=== PATIENT | male | born 1945 | race Caucasian/White ===

== ENCOUNTER 2019-03-09 14:25 | Inpatient (IN) ==
[2019-03-09] MEDS ORDERED: IOPAMIDOL 100 ML BOTTLE IV ONE (14:26)
[2019-03-09] MEDS ORDERED: IPRATROPIUM/ALBUTEROL 3 ML AMPUL.NEB NEB ONE ×3 (14:41→17:29)
[2019-03-09] MEDS ORDERED: methylPREDNISolone SOD SUCC 125 MG/2 ML VIAL IV ONE (15:06)
[2019-03-09 16:05] LABS: Basophils # (Auto) 0 K/mcL (0.0-0.3); Basophils % (Auto) 0.3 % (0.0-2.0); Eosinophils # (Auto) 0.2 K/mcL (0.0-0.7); Eosinophils % (Auto) 2.4 % (0.0-7.0); Hemoglobin 14.9 g/dL (13.5-16.5); Lymphocytes # (Auto) 1.2 K/mcL (1.5-4.8); Lymphocytes % (Auto) 16.5 % (15.5-49.0); Mean Cell Volume 91.6 fL (80.0-100.0); Mean Corpuscular HGB Conc 33.1 g/dL (31.0-36.0); Mean Platelet Volume 7.1 fL (7.4-10.4); Monocytes # (Auto) 0.5 K/mcL (0.1-0.9); Monocytes % (Auto) 6.8 % (1.0-12.0); Platelet Count 247 K/mcL (140-440); RBC 4.91 M/mcL (4.50-5.90); Red Cell Distribution Width 14.4 % (11.5-14.5); WBC 7.2 K/mcL (4.5-11.0)
[2019-03-09 16:08] LABS: proBNP 136.8 pg/ml (0-125)
[2019-03-09 16:10] LABS: ALT/SGPT 56 U/l (0-40); AST/SGOT 33 U/l (0-37); Albumin 4.4 gm/dL (3.2-5.2); Albumin/Globulin Ratio 1.7 (1.0-2.3); Alkaline Phosphatase 65 U/L (39-117); Bilirubin,Total 0.5 mg/dL (0.0-1.0); Blood Urea Nitrogen 12 mg/dl (8-23); Calcium 9.6 mg/dl (8.6-10.4); Carbon Dioxide 27 mmol/L (22-30); Chloride 97 mmol/L (96-108); Globulin 2.6 gm/dL (2.2-3.7); Glomerular Filtration Rate 67; Glucose 122 mg/dL (70-105)
--- NOTE | 2019-03-09 16:57 | XRay Report ---
CLINICAL INFORMATION: sob COMPARISON: 01/20/2019 FINDINGS: Heart size, mediastinum and pulmonary vessels are normal. Minor bibasilar scarring and/or atelectasis appreciated.. No infiltrates or effusions. Moderate calcific plaque at both carotid bifurcations noted. Mild chronic wedging of all thoracic vertebral bodies stable IMPRESSION: No acute disease. Moderate atherosclerotic ossific plaque in both carotid bifurcations. Consider carotid Doppler study for stenosis evaluation Interpreted and Authenticated by: Kenny Grewal 03/09/19
[2019-03-09] MEDS ORDERED: AZITHROMYCIN 500 MG in DEXTROSE 5% IN WATER 250 ML IV ONE (17:14)
--- NOTE | 2019-03-09 17:39 | Cat Scan Report ---
CLINICAL INFORMATION: Short of breath COMPARISON: 10/29/[address] TECHNIQUE: 80ml of Isovue-370 were injected intravenously. Using SmartPrep to maximize pulmonary artery opacification, .625mm helical slices were obtained from the lung apices through the lung bases. Following reconstruction, 2.5 mm sagittal, coronal, and axial reformations were processed. The exam was reviewed at mediastinal, lung, and bone windows. The exam was performed using radiation dose optimization techniques including, but not limited to, automated exposure control, adjustment of the mA and/or kV according to patient size and use of iterative reconstruction technique. FINDINGS: The pulmonary arteries are well opacified and normal in diameter - no evidence of embolus. Thoracic aorta is normal in diameter with moderate fibrofatty calcific plaque particularly in the descending segment. There is no adenopathy in the mediastinal hilar or axillary regions. The heart is normal in size with extremely heavy calcific and fibrofatty plaque throughout the coronary arteries. Esophagus is grossly normal. No thyroid is unremarkable Pulmonary parenchymal windows show chronic bronchitis featuring elevated lung volumes and wall thickening of the bronchi with scattered scarring in both mid and lower lungs. There are no nodules or infiltrates. Pleural spaces are normal. Bone windows show mild chronic wedging of multiple mid and lower thoracic vertebral body with endplate irregularity compatible chronic Scheuermann's disease. Images should the superior abdomen show no abnormality IMPRESSION: 1. No evidence of pulmonary embolus 2. Moderate chronic bronchitis. 3. Extremely heavy calcific plaque about the coronary arteries. Occlusive and subocclusive coronary artery disease is suspected. Consider cardiology referral for stress testing Interpreted and Authenticated by: Kenny Grewal 03/09/19
--- NOTE | 2019-03-09 17:45 | Emergency Department Note ---
SOB HPI - General Chief Complaint: Shortness of Breath/Dyspnea Stated Complaint: Short of Breath Time Seen by Provider: 03/09/19 14:53 Source: patient, family Mode of arrival: wheelchair Limitations: no limitations - History of Present Illness 73-year-old male presents with shortness of breath. Onset upon waking up this morning. Has known COPD but states is much worse than usual. He usually can walk around fine but he is completely activity intolerant due to severe shortness of breath. Arrives with tachypnea, tachycardia, and speaks 2-3 words at a time. He denies fever or chills. No nausea, vomiting, or diarrhea or diarrhea. No sore throat or ear pain. No other cold symptoms. States he does have pedal edema but this is chronic and not worse than usual. - Related Data Previous Rx's Medication Instructions Recorded albuterol sulfate 90 mcg/actuation 1 puff INHALATION Q6H PRN #8.5 g 10/02/18 aerosol inhaler hydrocodone 5 mg-acetaminophen 325 1 tab PO QHS PRN #20 tab 10/02/18 mg tablet fluticasone fur. 100 mcg-umeclid 1 inh INHALATION QDAY #60 each 12/29/18 62.5 mcg-vilant 25 mcg inhalat.powder ipratropium-albuterol 0.5 mg-3 3 ml INHALATION Q6HP PRN #30 01/05/19 mg(2.5 mg base)/3 mL nebulization ampul.neb soln amlodipine 5 mg-benazepril 40 mg 1 cap PO QDAY #90 cap 02/02/19 capsule clopidogrel 75 mg tablet 75 mg PO QDAY #90 tab 02/02/19 hydrochlorothiazide 50 mg tablet 25 mg PO QDAY #90 tab 02/02/19 simvastatin 40 mg tablet 40 mg PO QHS #90 tab 02/02/19 Allergies Allergy/AdvReac Type Severity Reaction Status Date / Time No Known Drug Allergies Allergy Verified 02/04/19 16:20 Review of Systems All systems ED: reviewed and negative except as stated. Past Medical History - Past Medical History [facility] Narrative: Medical History (Last Reviewed 03/05/19 @ 17:12 by Hardik Harrison MD) Carotid atherosclerosis (Chronic) History of heavy alcohol consumption (Chronic) Right bundle branch block (RBBB) (Chronic) Obesity (BMI 30-39.9) (Chronic) Acute exacerbation of chronic obstructive airways disease (Acute) Dyspnea (Chronic) Benign essential hypertension (Chronic) Hypertriglyceridemia (Chronic) Elevated PSA (Chronic) Osteoarthritis (Chronic) Aortic aneurysm (Resolved) COPD (chronic obstructive pulmonary disease) (Chronic) High cholesterol (Chronic) Joint pain (Resolved) Past Surgical History (Last Reviewed 03/05/19 @ 17:12 by Hardik Harrison MD) History of aortic aneurysm repair (Chronic) History of colonoscopy (Chronic) Medical history: Reports: COPD, hyperlipidemia, hypertension, ALTAF ( Is on CPAP), pneumonia (History as a child and then also had an episode of aspiration apparently associated with scopolamine patch.), other (Carotid atherosclerosis.). Denies: CVA, DM, myocardial infarction, TIA Surgical history ED: Reports: non-contributory - Social History smoking status: Former smoker Alcohol use: Reports: Daily (2-3 drinks per night) Drug use: Reports: none. Denies: marijuana Physical Exam Limitations: no limitations General appearance: alert, obese, other (Obvious shortness of breath, speaks 2-3 words at a time, tachypneic in the high 20s and tachycardic on arrival.) Head: atraumatic, normocephalic, normal inspection Eye: Present: normal appearance. Absent: conjunctival injection ENT: Present: normal exam, normal oropharynx, mucous membranes moist, normal external ear exam, nasal congestion Neck: Present: normal inspection, trachea midline. Absent: tenderness, lymphadenopathy Chest: Present: symmetric chest wall rise Respiratory: Present: respiratory distress (Mild to moderate on arrival), wheezes (Expiratory wheezes in the bases bilaterally and diminished throughout), accessory muscle use (Mild). Absent: rales/crackles, stridor Cardiovascular: Present: tachycardia, normal heart sounds Extremities: Present: normal inspection, pedal edema (1+ bilaterally) Neurological: Present: alert, oriented X3 Psychiatric: Present: normal affect, normal mood Skin: Present: warm, dry, intact, normal color Course Course Narrative: Patient consistently 91% on room air however he does drop with any exertion. We did try to get him up and walk him just a little bit and he is unable to walk more than about 10 feet without becoming severely tachypneic and sats dropping to low 80s. He does do much better when on oxygen, in bed and resting. @ 1900 I did speak with hospitalist Dr. Bland who agrees to accept this patient. Vital Signs Temperature 98.4 F 03/09/19 14:27 Pulse Rate 120 H 03/09/19 14:27 Respiratory Rate 26 H 03/09/19 14:27 Blood Pressure 147/90 03/09/19 14:27 Pulse Oximetry (%) 92 03/09/19 14:27 Temperature 98.4 F 03/09/19 14:27 Pulse Rate 110 H 03/09/19 18:44 Respiratory Rate 23 H 03/09/19 18:44 Blood Pressure 151/87 03/09/19 18:31 Pulse Oximetry (%) 96 03/09/19 18:44 Shortness of Breath/Dyspnea - Lab Data Lab results reviewed: Yes I reviewed the patient's lab results. Result diagrams: 03/09/19 15:05 03/09/19 15:05 Lab Results 03/09/19 03/09/19 03/09/19 Range/Units 15:05 15:05 15:05 WBC 7.2 (4.5-11.0) K/mcL RBC 4.91 (4.50-5.90) M/mcL Hgb 14.9 (13.5-16.5) g/dL Hct 45.0 (41.0-55.0) % MCV 91.6 (80.0-100.0) fL MCH 30.3 (26.0-34.0) pg MCHC 33.1 (31.0-36.0) g/dL RDW 14.4 (11.5-14.5) % Plt Count 247 (140-440) K/mcL MPV 7.1 L (7.4-10.4) fL Gran % 74.0 (38.0-78.0) % Lymph % (Auto) 16.5 (15.5-49.0) % [place] % (Auto) 6.8 (1.0-12.0) % Eos % (Auto) 2.4 (0.0-7.0) % Baso % (Auto) 0.3 (0.0-2.0) % Gran # 5.3 (1.8-8.0) K/mcL Lymph # (Auto) 1.2 L (1.5-4.8) K/mcL [place] # (Auto) 0.5 (0.1-0.9) K/mcL Eos # (Auto) 0.2 (0.0-0.7) K/mcL Baso # (Auto) 0 (0.0-0.3) K/mcL VBG Lactic Acid 2.3 H (0.5-2.0) mmol/L Sodium 137 (133-145) mmol/L Potassium 4.4 (3.3-5.1) mmol/L Chloride 97 (96-108) mmol/L Carbon Dioxide 27 (22-30) mmol/L Anion Gap 13.0 (8-16) BUN 12 (8-23) mg/dl Creatinine 1.1 (0.7-1.2) mg/dl GFR Calculation 67 Glucose 122 H (70-105) mg/dL Calcium 9.6 (8.6-10.4) mg/dl Total Bilirubin 0.5 (0.0-1.0) mg/dL AST 33 (0-37) U/l ALT 56 H (0-40) U/l Alkaline Phosphatase 65 (39-117) U/L Troponin T (0-0.03) ng/ml NT-Pro-B Natriuret Pep 136.8 H (0-125) pg/ml Total Protein 7.0 (5.9-8.4) gm/dL Albumin 4.4 (3.2-5.2) gm/dL Globulin 2.6 (2.2-3.7) gm/dL Albumin/Globulin Ratio 1.7 (1.0-2.3) 03/09/19 Range/Units 15:05 WBC (4.5-11.0) K/mcL RBC (4.50-5.90) M/mcL Hgb (13.5-16.5) g/dL Hct (41.0-55.0) % MCV (80.0-100.0) fL MCH (26.0-34.0) pg MCHC (31.0-36.0) g/dL RDW (11.5-14.5) % Plt Count (140-440) K/mcL MPV (7.4-10.4) fL Gran % (38.0-78.0) % Lymph % (Auto) (15.5-49.0) % [place] % (Auto) (1.0-12.0) % Eos % (Auto) (0.0-7.0) % Baso % (Auto) (0.0-2.0) % Gran # (1.8-8.0) K/mcL Lymph # (Auto) (1.5-4.8) K/mcL [place] # (Auto) (0.1-0.9) K/mcL Eos # (Auto) (0.0-0.7) K/mcL Baso # (Auto) (0.0-0.3) K/mcL VBG Lactic Acid (0.5-2.0) mmol/L Sodium (133-145) mmol/L Potassium (3.3-5.1) mmol/L Chloride (96-108) mmol/L Carbon Dioxide (22-30) mmol/L Anion Gap (8-16) BUN (8-23) mg/dl Creatinine (0.7-1.2) mg/dl GFR Calculation Glucose (70-105) mg/dL Calcium (8.6-10.4) mg/dl Total Bilirubin (0.0-1.0) mg/dL AST (0-37) U/l ALT (0-40) U/l Alkaline Phosphatase (39-117) U/L Troponin T < 0.01 (0-0.03) ng/ml NT-Pro-B Natriuret Pep (0-125) pg/ml Total Protein (5.9-8.4) gm/dL Albumin (3.2-5.2) gm/dL Globulin (2.2-3.7) gm/dL Albumin/Globulin Ratio (1.0-2.3) - Radiology Data Radiology results reviewed: Yes I reviewed the patient's radiology results. Disposition Pt seen by EDUCATION SALES CONSULTANT/PA only: Yes Clinical Impression: COPD exacerbation, Hypoxia Disposition: Xfer As Inpt ([facility]) Condition: Fair Referrals: Krystina Jamison DO [Primary Care Provider] - Time of Disposition: 19:01
[2019-03-09] MEDS ORDERED: 0.9 % SODIUM CHLORIDE 500 ML IV ONE (18:04)
[2019-03-09] MEDS ORDERED: LORazepam 2 MG/ML VIAL IV ONE (19:30)
--- NOTE | 2019-03-09 19:45 | Internal Med History&Physical ---
Medical - H&P: [facility] Patient information: Note initiated : 03/09/19 at 7:43 pm Service Date, if different from initiated Date: [] Patient: Gil Chávez 73 y/o M admitted on for Short of Breath. Chief Complaint: [] History of present illness: This is a 73-year-old gentleman with a history of COPD, aortic aneurysm status post repair x2, essential hypertension, carotid atherosclerosis, hyperlipidemia, history of heavy alcoholism, hypertriglyceridemia and morbid obesity, right bundle branch block was brought to the ER because of progressively worsening shortness of breath which did not improve with breathing treatments. Patient denied any fever chills or any upper airway symptoms. He is having progressive exertional shortness of breath. He denied any chest pain no palpitations no weight gain but he reported 1+ edema bilaterally. Review of system unremarkable other than cough shortness of breath and wheezing. He was evaluated in the ER underwent CTA which was unremarkable for any pneumonia or PE no features of heart failure on the CTA. Patient was started on duo nebs and Solu-Medrol without any improvement he remained hypoxic and was admitted to our facility for further management - Constitutional Constitutional: Present: chills, fatigue, malaise - EENT Ears: Absent: decreased hearing, ear discharge, ear pain Nose, mouth and throat: Absent: headache(s) - Cardiovascular Cardiovascular: Present: dyspnea, dyspnea on exertion, edema. Absent: irregular heart rhythm, radiating jaw, neck or arm pain - Respiratory Respiratory: Present: cough, dyspnea, dyspnea on exertion, wheezing, pain on inspirtation, chest congestion - Gastrointestinal Gastrointestinal: Absent: change in stool character, coffee ground emesis, constipation, cramping, diarrhea - Neurological Neurological: Present: dizziness. Absent: abnormal gait, abnormal hearing, abnormal movements, confusion, convulsions - Psychiatric Psychiatric: Absent: hallucinations, panic attacks, paranoia, visual hallucinations Medical - H&P: [facility] Medical history: Medical History (Last Reviewed 03/05/19 @ 17:12 by Hardik Harrison MD) Carotid atherosclerosis (Chronic) History of heavy alcohol consumption (Chronic) Right bundle branch block (RBBB) (Chronic) Obesity (BMI 30-39.9) (Chronic) Acute exacerbation of chronic obstructive airways disease (Acute) Dyspnea (Chronic) Benign essential hypertension (Chronic) Hypertriglyceridemia (Chronic) Elevated PSA (Chronic) Osteoarthritis (Chronic) Aortic aneurysm (Resolved) COPD (chronic obstructive pulmonary disease) (Chronic) High cholesterol (Chronic) Joint pain (Resolved) Surgical history: Past Surgical History (Last Reviewed 03/05/19 @ 17:12 by Hardik Harrison MD) History of aortic aneurysm repair (Chronic) History of colonoscopy (Chronic) Pertinent family history: Family History (Last Reviewed 03/05/19 @ 17:12 by Hardik Harrison MD) Grandmother Arthritis Stroke Mother Breast cancer Social history: Social History (Last Updated 03/05/19 @ 17:24 by Hardik Harrison MD) No Social History Section defined Heavy alcoholism Smoking No recreational drug use Medical - H&P: Meds Home Medications Medication Instructions Recorded Confirmed Type albuterol sulfate 90 mcg/actuation 1 puff INHALATION Q6H PRN #8.5 g 10/02/18 03/05/19 Rx aerosol inhaler hydrocodone 5 mg-acetaminophen 325 1 tab PO QHS PRN #20 tab 10/02/18 03/05/19 Rx mg tablet fluticasone fur. 100 mcg-umeclid 1 inh INHALATION QDAY #60 each 12/29/18 03/05/19 Rx 62.5 mcg-vilant 25 mcg inhalat.powder ipratropium-albuterol 0.5 mg-3 3 ml INHALATION Q6HP PRN #30 01/05/19 03/05/19 Rx mg(2.5 mg base)/3 mL nebulization ampul.neb soln amlodipine 5 mg-benazepril 40 mg 1 cap PO QDAY #90 cap 02/02/19 03/05/19 Rx capsule clopidogrel 75 mg tablet 75 mg PO QDAY #90 tab 02/02/19 03/09/19 Rx hydrochlorothiazide 50 mg tablet 25 mg PO QDAY #90 tab 02/02/19 03/09/19 Rx simvastatin 40 mg tablet 40 mg PO QHS #90 tab 02/02/19 03/09/19 Rx Allergies Allergy/AdvReac Type Severity Reaction Status Date / Time No Known Drug Allergies Allergy Verified 02/04/19 16:20 Medical - H&P: Exam - Constitutional Vitals: Temp Pulse Resp BP Pulse Ox 98.4 F 115 H 23 H 134/74 94 03/09/19 14:27 03/09/19 19:16 03/09/19 19:16 12/16/19 19:16 03/09/19 19:16 General appearance: morbidly obese - Head Head exam: Present: atraumatic, normal inspection, normocephalic - Expanded Head Exam Head exam: Absent: abrasion, Vizcarra's sign, contusion - Eye Eye exam: Present: conjunctival injection, EOMI, normal appearance Pupils: Present: PERRL - ENT ENT exam: Present: mucous membranes moist, normal exam, normal oropharynx - Expanded ENT Exam Ear exam: Absent: auricular hematoma, auricular trauma, external canal tenderness Nose & sinuses exam: Present: external nose, grossly normal, sinuses non tender to palpatation Mouth exam: Present: dry mucosa, muffled voice, normal external inspection - Neck Neck exam: Present: full ROM, normal inspection. Absent: lymphadenopathy, meningismus - Respiratory Respiratory exam: Present: accessory muscle use, decreased breath sounds, prolonged expiratory phase, respiratory distress, wheezes - Cardiovascular Cardiovascular exam: Absent: bradycardia, diastolic murmur, +S3, systolic murmur - GI/Abdominal GI/Abdominal exam: Present: normal bowel sounds, soft, distended. Absent: diminished bowel sounds - Expanded GI/Abdominal Exam GI/Abdominal exam: Absent: ascites, Bernstein's sign - Neurological Exam Neurological exam: Present: alert, CN II-XII intact, oriented X3, reflexes normal. Absent: abnormal gait, motor sensory deficit - Expanded Neurological Exam Neurological exam expanded: Absent: ataxia, expressive aphasia, inattentive, memory loss-recent event, memory loss-remote event Patient oriented to: Present: person, place, time - Psychiatric Psychiatric exam: Present: anxious. Absent: agitated, depressed, homicidal ideation Medical - H&P: Reslt - Labs CBC & Chem 7: 03/09/19 15:05 03/09/19 15:05 Labs: Short CBC 03/09/19 Range/Units 15:05 WBC 7.2 (4.5-11.0) K/mcL Hgb 14.9 (13.5-16.5) g/dL Hct 45.0 (41.0-55.0) % Plt Count 247 (140-440) K/mcL BMP 03/09/19 15:05 Sodium 137 Potassium 4.4 Chloride 97 Carbon Dioxide 27 BUN 12 Creatinine 1.1 Glucose 122 H Calcium 9.6 Cardiac Enzymes 03/09/19 Range/Units 15:05 Troponin T < 0.01 (0-0.03) ng/ml Liver Function 03/09/19 Range/Units 15:05 Total Bilirubin 0.5 (0.0-1.0) mg/dL AST 33 (0-37) U/l ALT 56 H (0-40) U/l Alkaline Phosphatase 65 (39-117) U/L Albumin 4.4 (3.2-5.2) gm/dL Medical - H&P: A/P - Narrative A/P Narrative: Acute hypoxic hypercapnic respiratory failure Probable COPD exacerbation We will obtain an ABG Chest x-ray and CTA did not show any evidence of pneumonia We will order an echocardiogram He probably has right-sided heart failure and probable underlying obesity hypoventilation contributing to the picture We will obtain echocardiogram Trend the troponin Telemetry monitoring COPD exacerbation treatment with DuoNebs every 4 hours and as needed Solu-Medrol 40 mg every 8 hourly We will start him on ceftriaxone and azithromycin Patient denied any smoking for the last 2 months but the family is not sure which could be the reason for his recurrent COPD exacerbations Probable obesity hypoventilation and pulmonary hypertension With his body habitus and features of right-sided heart failure possibility of pulmonary hypertension Ordered echocardiogram Exertional shortness of breath Obtain troponin every 6x[address] scan suggestive of significant calcification Need outpatient cardiology follow-up if his initial work-up remain negative Lactic acidosis-probably type B No hypotension in the ER We will monitor lactic acid and vital signs Aortic aneurysm status post repair Monitor blood pressure Systolic blood pressure should be kept less than 160 Heavy alcoholism Potential withdrawal Will monitor and use lorazepam as needed Explained to the patient possibility of respiratory failure if he start withdrawal Probable underlying sleep apnea Patient denies any history of sleep apnea Need outpatient sleep study DVT prophylaxis-subcu heparin CODE STATUS-full code Expected length of stay-2 midnights
[2019-03-09] MEDS ORDERED: ONDANSETRON 4 MG/2 ML VIAL IV PRN (20:02)
[2019-03-09] MEDS ORDERED: ACETAMINOPHEN 325 MG TABLET PO PRN (20:02)
[2019-03-09] MEDS ORDERED: traZODone HCL 50 MG TABLET PO PRN (20:02)
[2019-03-09] MEDS ORDERED: HYDROcodone/APAP 5/325MG TABLET PO PRN (20:02)
[2019-03-09] MEDS ORDERED: ALBUTEROL SULFATE 2.5 MG/3 ML NEBULIZER NEB PRN (20:02)
[2019-03-09] MEDS ORDERED: cefTRIAXone 2 GM in DEXTROSE 5% IN WATER 50 ML IV ONE (21:11)
[2019-03-09] MEDS ORDERED: cefTRIAXone 2 GM VIAL ONE (21:38)
[2019-03-09 21:57] LABS: ALT/SGPT 52 U/l (0-40); AST/SGOT 29 U/l (0-37); Albumin 4.1 gm/dL (3.2-5.2); Albumin/Globulin Ratio 1.7 (1.0-2.3); Alkaline Phosphatase 57 U/L (39-117); Bilirubin,Total 0.4 mg/dL (0.0-1.0); Blood Urea Nitrogen 12 mg/dl (8-23); Calcium 8.7 mg/dl (8.6-10.4); Carbon Dioxide 22 mmol/L (22-30); Chloride 98 mmol/L (96-108); Globulin 2.4 gm/dL (2.2-3.7); Glomerular Filtration Rate 67; Glucose 150 mg/dL (70-105)
[2019-03-09] MEDS: IPRATROPIUM/ALBUTEROL 3 ML AMPUL.NEB NEB SCH (21:58)
[2019-03-09] MEDS: SENNOSIDES 1 TABLET PO SCH (22:55)
[2019-03-09] MEDS: HEPARIN 5,000 UNIT/ML VIAL SQ SCH (22:55)
[2019-03-09] MEDS: DOCUSATE SODIUM 100 MG CAPSULE PO SCH (22:55)
[2019-03-09] MEDS: 0.9 % SODIUM CHLORIDE 10 ML SYRINGE IV SCH (22:56)
[2019-03-10] MEDS: methylPREDNISolone SOD SUCC 40 MG/ML VIAL IV SCH ×4 (00:21→17:11)
[2019-03-10] MEDS ORDERED: METOPROLOL TARTRATE 25 MG TABLET ONE (01:37)
[2019-03-10] MEDS: METOPROLOL TARTRATE 25 MG TABLET PO SCH ×3 (01:39→21:57)
[2019-03-10] MEDS: IPRATROPIUM/ALBUTEROL 3 ML AMPUL.NEB NEB SCH ×6 (03:17→22:42)
[2019-03-10] MEDS: 0.9 % SODIUM CHLORIDE 10 ML SYRINGE IV SCH ×3 (05:43→23:08)
[2019-03-10 06:22] LABS: Hematocrit 42.3 % (41.0-55.0); Hemoglobin 13.9 g/dL (13.5-16.5); Mean Cell Volume 92.5 fL (80.0-100.0); Mean Corpuscular HGB Conc 32.9 g/dL (31.0-36.0); Mean Platelet Volume 7.2 fL (7.4-10.4); Platelet Count 221 K/mcL (140-440); RBC 4.58 M/mcL (4.50-5.90); Red Cell Distribution Width 14.5 % (11.5-14.5); WBC 8.1 K/mcL (4.5-11.0)
[2019-03-10 07:00] LABS: ALT/SGPT 47 U/l (0-40); AST/SGOT 25 U/l (0-37); Albumin 3.9 gm/dL (3.2-5.2); Albumin/Globulin Ratio 1.6 (1.0-2.3); Alkaline Phosphatase 52 U/L (39-117); Bilirubin,Total 0.3 mg/dL (0.0-1.0); Blood Urea Nitrogen 15 mg/dl (8-23); Calcium 8.8 mg/dl (8.6-10.4); Carbon Dioxide 23 mmol/L (22-30); Globulin 2.5 gm/dL (2.2-3.7); Glomerular Filtration Rate 75; Glucose 183 mg/dL (70-105)
[2019-03-10 07:06] LABS: Chloride 95 mmol/L (96-108)
--- NOTE | 2019-03-10 07:28 | Internal Med Progress Note ---
Medical - PN: Subj Patient information: Note initiated : 03/10/19 at 7:27 am Service Date, if different from initiated Date: [] Patient: Gil Chávez 73 y/o M admitted on 03/09/19 for Short of Breath. Chief Complaint: [] Interval history: 03/10-this gentleman was admitted shortness of breath and probable COPD exacerbation. He had an echocardiogram recently which showed an ejection fraction of 65% no major wall motion abnormalities no evidence of any congestive heart failure or LV dysfunction. He was started on COPD exacerbation protocol with a DuoNeb Solu-Medrol and antibiotics. He started feeling slightly better continued having cough unable to spit out the sputum. Pertinent ROS: Review of systems General-having intermittent respiratory distress Cardiac-no chest pain no palpitations Respiratory-continued having cough and shortness of breath with minimal activities Abdomen-no pain distended no nausea no vomiting Urinary-no dysuria no discharge Neuro-no dizziness no focal neuro deficit no seizures - Constitutional Vitals: Vital Signs Temp Pulse Resp BP Pulse Ox 98.4 F 92 H 16 183/93 95 03/10/19 03:17 03/10/19 07:03 03/10/19 07:03 03/10/19 03:17 03/10/19 06:59 Period Temp Pulse Resp BP Sys/Ndiaye Pulse Ox Last 24 Hr 98.1 F-98.7 F 92-127 16-38 133-183/72-105 88-98 Intake and Output 03/09/19 03/10/19 03/10/19 21:59 05:59 13:59 Intake Total 750 790 Output Total 650 Balance 750 140 Weight 234 lb 8 oz Intake & Output: Intake & Output 03/09/19 03/10/19 03/10/19 21:59 05:59 13:59 Intake Total 750 790 Output Total 650 Balance 750 140 Weight 234 lb 8 oz Intake: IV 750 50 Sodium Chloride 0.9% 500 ml @ 500 Wide Open IV BOLUS ONE Rx#: [id number] Zithromax 500 mg In Dextrose 5% 250 in Water 250 ml @ 250 mls/hr IV ONCE ONE Rx#:[id number] Rocephin 2 gm In Dextrose 5% in 50 Water 50 ml @ 100 mls/hr IV ONCE ONE Rx#:[id number] Oral 740 Output: Void Amount 650 Other: Meal Dinner Percent of Meal Consumed 75% Feeding Ability Assist with Tray Set Up Urine Appearance Clear Urine Color Dark Yellow Urine Odor Normal General appearance: cooperative, morbidly obese - Head Head exam: Present: atraumatic, normal inspection, normocephalic - Eye Eye exam: Present: conjunctival injection, PERRL. Absent: nystagmus - ENT ENT exam: Present: mucous membranes dry, normal exam - Neck Neck exam: Present: normal inspection. Absent: lymphadenopathy, meningismus - Respiratory Respiratory exam: Present: accessory muscle use, decreased breath sounds, prolonged expiratory phase, respiratory distress, wheezes - Cardiovascular Cardiovascular exam: Present: normal rate and rhythm. Absent: bradycardia, diastolic murmur, systolic murmur - GI/Abdominal GI/Abdominal exam: Present: normal bowel sounds, soft, distended. Absent: dimin ished bowel sounds - Neurological Exam Neurological exam: Present: alert, oriented X3, reflexes normal. Absent: motor sensory deficit Medical - PN: Obj Da - Labs CBC & Chem 7: 03/10/19 05:30 03/10/19 05:30 Labs: Abnormal Lab Results 03/10/19 03/10/19 03/09/19 05:30 05:30 20:42 MPV 7.2 L Lymph # (Auto) VBG Lactic Acid 2.4 H Chloride 95 L Glucose 183 H ALT 47 H NT-Pro-B Natriuret Pep 03/09/19 03/09/19 03/09/19 20:42 15:05 15:05 MPV Lymph # (Auto) VBG Lactic Acid 2.3 H Chloride Glucose 150 H 122 H ALT 52 H 56 H NT-Pro-B Natriuret Pep 136.8 H 03/09/19 15:05 MPV 7.1 L Lymph # (Auto) 1.2 L VBG Lactic Acid Chloride Glucose ALT NT-Pro-B Natriuret Pep Meds: Medications Acetaminophen (Tylenol) 650 mg PO Q6HP PRN; Protocol PRN Reason: Per Pain Protocol/Fever > 101 Hydrocodone Bitart/Acetaminophen ([place] 5/325mg) 1 tab PO Q8HP PRN; Protocol PRN Reason: Per Pain Protocol Albuterol Sulfate (Ventolin) 2.5 mg NEB Q2HP PRN PRN Reason: Shortness Of Breath Last Admin: 03/09/19 23:25 Dose: 2.5 mg Documented by: Albuterol/Ipratropium (Duoneb) 3 ml NEB Q4HRT [facility] Last Admin: 03/10/19 06:58 Dose: 3 ml Documented by: Docusate Sodium (Colace) 100 mg PO BID [facility] Last Admin: 03/09/19 22:55 Dose: 100 mg Documented by: Heparin Sodium (Porcine) (Heparin) 5,000 unit SQ Q12 [facility] Last Admin: 03/09/19 22:55 Dose: 5,000 unit Documented by: Ceftriaxone Sodium 2 gm/ (Dextrose) 50 mls @ 100 mls/hr IV Q24H [facility] Azithromycin 500 mg/ Dextrose 250 mls @ 250 mls/hr IV Q24H [facility]; Protocol Stop: 03/12/19 10:59 Methylprednisolone Sodium Succinate (Solu-Medrol) 40 mg IV Q6 [facility] Last Admin: 03/10/19 05:43 Dose: 40 mg Documented by: Metoprolol Tartrate (Lopressor) 25 mg PO BID [facility] Last Admin: 03/10/19 01:39 Dose: Not Given Documented by: Ondansetron HCl (Zofran) 4 mg IV Q6HP PRN PRN Reason: Nausea And Vomiting Last Admin: 03/10/19 01:14 Dose: 4 mg Documented by: Pneumococcal Polyvalent Vaccine (Pneumovax 23) 0.5 ml IM .ONCE ONE Stop: 03/11/19 10:01 Senna (Senokot) 2 tab PO HS [facility] Last Admin: 03/09/19 22:55 Dose: 2 tab Documented by: Sodium Chloride (Saline Flush) 10 ml IV Q8 [facility] Last Admin: 03/10/19 05:43 Dose: 10 ml Documented by: Trazodone HCl (Desyrel) 25 mg PO HSP PRN PRN Reason: Insomnia Medical - PN: A/P - Time Spent With Patient Total time spent is greater than 50% in coordination of care (as documented) at patient's floor/unit and/or counseling patient: - Narrative A/P Narrative: Acute hypoxic hypercapnic respiratory failure Probable COPD exacerbation Chest x-ray and CTA did not show any evidence of pneumonia Echocardiogram 3 months ago showed normal ejection fraction no evidence of congestive heart failure Troponin remained negative Telemetry monitoring-unremarkable COPD exacerbation treatment with DuoNebs every 4 hours and as needed Solu-Medrol 40 mg every 8 hourly on ceftriaxone and azithromycin Patient denied any smoking for the last 2 months but the family is not sure which could be the reason for his recurrent COPD exacerbations Probable obesity hypoventilation and pulmonary hypertension With his body habitus and features of right-sided heart failure possibility of pulmonary hypertension Encouraged the patient to be evaluated for sleep apnea Lactic acidosis-probably type B No hypotension in the ER Lactic acid improved Aortic aneurysm status post repair Monitor blood pressure Systolic blood pressure should be kept less than 160 Heavy alcoholism Potential withdrawal Will monitor and use lorazepam as needed Explained to the patient possibility of respiratory failure if he start withdrawal Probable underlying sleep apnea Patient denies any history of sleep apnea Need outpatient sleep study DVT prophylaxis-subcu heparin CODE STATUS-full code Expected length of stay-1-2 midnights Medical - PN: Qual - Stroke Symptom Onset Unknown: No - VTE Deep Vein Thrombosis/Pulmonary Embolism Present on Admission: No
[2019-03-10 08:00] LABS: Band Neutrophils % 5 % (0-10); Lymphocytes % 3 % (15-49); Monocytes % (Manual) 3 % (1-12); Platelet Estimate NORMAL (NORMAL); RBC Morphology NORMAL (NORMAL); Reactive Lymphocytes 1 % (0-2); Segmented Neutrophils % 88 % (38-78)
[2019-03-10] MEDS: DOCUSATE SODIUM 100 MG CAPSULE PO SCH ×2 (08:48→21:58)
[2019-03-10] MEDS: HEPARIN 5,000 UNIT/ML VIAL SQ SCH ×2 (08:48→21:58)
[2019-03-10] MEDS: AZITHROMYCIN 500 MG in DEXTROSE 5% IN WATER 250 ML IV SCH (09:51)
[2019-03-10] MEDS: cefTRIAXone 2 GM in DEXTROSE 5% IN WATER 50 ML IV SCH (15:02)
[2019-03-10] MEDS ORDERED: ATORVASTATIN 20 MG TABLET PO SCH (21:00)
[2019-03-10] MEDS: FAMOTIDINE 20 MG TABLET PO SCH (21:57)
[2019-03-10] MEDS: SENNOSIDES 1 TABLET PO SCH (21:57)
[2019-03-11] MEDS: methylPREDNISolone SOD SUCC 40 MG/ML VIAL IV SCH ×3 (00:09→13:25)
[2019-03-11] MEDS: IPRATROPIUM/ALBUTEROL 3 ML AMPUL.NEB NEB SCH ×3 (02:55→11:14)
[2019-03-11] MEDS: 0.9 % SODIUM CHLORIDE 10 ML SYRINGE IV SCH (06:03)
[2019-03-11 07:13] LABS: Hematocrit 37.8 % (41.0-55.0); Hemoglobin 12.6 g/dL (13.5-16.5); Mean Cell Volume 92.7 fL (80.0-100.0); Mean Corpuscular HGB Conc 33.2 g/dL (31.0-36.0); Mean Platelet Volume 7.2 fL (7.4-10.4); Platelet Count 220 K/mcL (140-440); RBC 4.08 M/mcL (4.50-5.90); Red Cell Distribution Width 14.4 % (11.5-14.5); WBC 10.4 K/mcL (4.5-11.0)
[2019-03-11 07:33] LABS: ALT/SGPT 37 U/l (0-40); AST/SGOT 19 U/l (0-37); Albumin 3.8 gm/dL (3.2-5.2); Albumin/Globulin Ratio 1.8 (1.0-2.3); Alkaline Phosphatase 42 U/L (39-117); Bilirubin,Total 0.3 mg/dL (0.0-1.0); Blood Urea Nitrogen 18 mg/dl (8-23); Calcium 9.6 mg/dl (8.6-10.4); Carbon Dioxide 26 mmol/L (22-30); Chloride 97 mmol/L (96-108); Globulin 2.1 gm/dL (2.2-3.7); Glomerular Filtration Rate 67; Glucose 160 mg/dL (70-105)
[2019-03-11 08:19] LABS: Band Neutrophils % 4 % (0-10); Lymphocytes % 5 % (15-49); Monocytes % (Manual) 3 % (1-12); Platelet Estimate NORMAL (NORMAL); RBC Morphology NORMAL (NORMAL); Segmented Neutrophils % 88 % (38-78)
[2019-03-11] MEDS ORDERED: CLOPIDOGREL 75 MG TABLET PO SCH (09:00)
[2019-03-11] MEDS ORDERED: LISINOPRIL 20 MG TABLET PO SCH (09:00)
[2019-03-11] MEDS ORDERED: HYDROCHLOROTHIAZIDE 25 MG TABLET PO SCH (09:00)
[2019-03-11] MEDS ORDERED: amLODIPine 5 MG TABLET PO SCH (09:00)
[2019-03-11] MEDS: HEPARIN 5,000 UNIT/ML VIAL SQ SCH (09:27)
[2019-03-11] MEDS: FAMOTIDINE 20 MG TABLET PO SCH (09:32)
[2019-03-11] MEDS: DOCUSATE SODIUM 100 MG CAPSULE PO SCH (09:32)
[2019-03-11] MEDS: METOPROLOL TARTRATE 25 MG TABLET PO SCH (09:33)
[2019-03-11] MEDS: AZITHROMYCIN 500 MG in DEXTROSE 5% IN WATER 250 ML IV SCH (09:39)
[2019-03-11] MEDS: cefTRIAXone 2 GM in DEXTROSE 5% IN WATER 50 ML IV SCH (09:39)
[2019-03-11] MEDS ORDERED: PNEUMOCOCCAL 23-VAL P-SAC VAC 0.5 ML SYRINGE IM ONE (10:00)
--- NOTE | 2019-03-11 10:20 | Discharge Summary ---
Medical - DS: Prov Patient information: Note initiated : 03/11/19 at 10:18 am Service Date, if different from initiated Date: [] Patient: Gil Chávez 73 y/o M admitted on 03/09/19 for Short of Breath. Chief Complaint: [] Date of admission: 03/09/19 21:05 Discharge date: 03/11/19 Primary care physician: Krystina Jamison DO Consults: 03/09/19 Consult to Physician [CONS] Stat Comment: Consulting Provider: Katey Bland Reason For Exam: Physician to Consult Medical - DS: Meds - Discharge Medications Prescriptions: Cefdinir 300 mg PO BID 5 Days #10 cap Transmission Status: Received by [facility] predniSONE [Deltasone] 40 mg PO DAILY 10 Days #20 tab Transmission Status: Received by [facility] Tiotropium [place] [Spiriva] 18 mcg INH DAILY #1 inhalant Transmission Status: Received by [facility] Budesonide/Formoterol Fumarate [Symbicort 160-4.5 Mcg Inhaler] 10.2 gm IH BID #1 hfa.aer.ad Transmission Status: Received by [facility] Lisinopril [Zestril] 40 mg PO DAILY 30 Days #30 tab Transmission Status: Received by [facility] Active and Home Medications: Home Medications albuterol sulfate 90 mcg/actuation aerosol inhaler 1 puff INHALATION Q6H PRN #8.5 g 10/02/18 [Rx Confirmed 03/09/19 Last Taken 03/09/19 1 Puff] ipratropium-albuterol 0.5 mg-3 mg(2.5 mg base)/3 mL nebulization soln 3 ml INHALATION Q6HP PRN #30 ampul.neb 01/05/19 [Rx Confirmed 03/09/19 Last Taken 03/09/19 1 Unit Dose] amlodipine 5 mg-benazepril 40 mg capsule 1 cap PO QDAY #90 cap 02/02/19 [Rx Confirmed 03/09/19 Last Taken 03/08/19 1 Capsule] clopidogrel 75 mg tablet 75 mg PO QDAY #90 tab 02/02/19 [Rx Confirmed 03/09/19 Last Taken 03/09/19 75 mg] hydrochlorothiazide 50 mg tablet 25 mg PO QDAY #90 tab 02/02/19 [Rx Confirmed 03/09/19 Last Taken 03/08/19 25 mg] simvastatin 40 mg tablet 40 mg PO QHS #90 tab 02/02/19 [Rx Confirmed 03/09/19 Last Taken 03/08/19 40 mg] Budesonide/Formoterol Fumarate [Symbicort 160-4.5 Mcg Inhaler] 10.2 gm IH BID #1 hfa.aer.ad 03/11/19 [Rx Last Taken Unknown] Cefdinir 300 mg PO BID 5 Days #10 cap 03/11/19 [Rx Last Taken Unknown] Lisinopril [Zestril] 40 mg PO DAILY 30 Days #30 tab 03/11/19 [Rx Last Taken Unknown] Tiotropium [place] [Spiriva] 18 mcg INH DAILY #1 inhalant 03/11/19 [Rx Last Taken Unknown] predniSONE [Deltasone] 40 mg PO DAILY 10 Days #20 tab 03/11/19 [Rx Last Taken Unknown] Medical - DS: Hosp Hospital Course: This is a 73-year-old gentleman admitted with acute hypoxic respiratory failure and COPD exacerbation. Patient lives in his trailer and history suggestive may be intermittent smoking but patient refused it and family suspicious. He was admitted and started on Solu-Medrol 60 every 8 hourly and DuoNeb's every 4 hours and since then his shortness of breath has been improving no obvious evidence of pneumonia but kept him on ceftriaxone for the COPD exacerbation. Her symptoms improved his oxygenation back to baseline 2 L and patient wanted to be discharged home. I encouraged the patient to use pillows and inhaler which I prescribed and Spiriva to prevent further episodes. He also has pulmonology appointment and given prednisone for next 7 days until he sees a ad operations coordinator. I strongly recommend the patient evaluate for sleep apnea. Acute hypoxic hypercapnic respiratory failure Probable COPD exacerbation Chest x-ray and CTA did not show any evidence of pneumonia Echocardiogram 3 months ago showed normal ejection fraction no evidence of congestive heart failure Troponin remained negative Telemetry monitoring-unremarkable COPD exacerbation treatment with DuoNebs every 4 hours and as needed Solu-Medrol 40 mg every 8 hourly changed to prednisone 40 mg daily on ceftriaxone and azithromycin-changed to cefdinir 300 for another 5 days Patient denied any smoking for the last 2 months but the family is not sure which could be the reason for his recurrent COPD exacerbations Needs to follow-up with pulmonology Started him on budesonide formoterol inhaler and Spiriva in addition to his DuoNeb's nebulization at home Probable obesity hypoventilation and pulmonary hypertension With his body habitus and features of right-sided heart failure possibility of pulmonary hypertension Encouraged the patient to be evaluated for sleep apnea Lactic acidosis-probably type B No hypotension in the ER Lactic acid improved Aortic aneurysm status post repair Monitor blood pressure Systolic blood pressure should be kept less than 160 Heavy alcoholism He has not shown any signs of withdrawal Patient wanted to be discharged home Discharge diagnosis: Acute hypoxic respiratory failure, COPD exacerbation - Time Spent with Patient Total time spent providing and/or coordinating discharge services: Greater than 30 minutes Medical - DS: Exam - Constitutional Vitals: Vital Signs Temp Pulse Pulse Resp BP Pulse Ox 03/11/19 08:00 97.6 F 111 H 16 163/84 94 03/11/19 07:24 86 16 95 03/11/19 05:56 93 03/11/19 03:07 97.7 F 90 16 125/79 94 03/10/19 23:12 98.3 F 94 H 22 105/65 93 03/10/19 22:40 99 H 20 03/10/19 19:15 98 H 20 03/10/19 19:00 93 03/10/19 18:58 98.5 F 98 H 24 H 129/80 95 03/10/19 16:00 99.0 F 107 H 20 133/73 95 03/10/19 15:05 101 H 20 03/10/19 12:12 94 03/10/19 12:00 98.8 F 92 H 22 125/81 95 03/10/19 10:56 90 16 03/10/19 10:51 98 Intake and Output 03/10/19 03/11/19 03/11/19 21:59 05:59 13:59 Intake Total 1250 480 360 Output Total 850 500 400 Balance 400 -20 -40 Intake: IV 50 Rocephin 2 gm In Dextrose 5% in 50 Water 50 ml @ 100 mls/hr IV Q24H [facility] Rx#:[id number] Oral 1200 480 360 Output: Void Amount 850 500 400 Other: Meal Dinner Breakfast Percent of Meal Consumed 50% 100% Feeding Ability Independent Independent Urine Appearance Clear Clear Clear Urine Color Dark Yellow Bright Yellow Bright Yellow Urine Odor Normal Normal Normal Stool Size Small Stool Color Brown Stool Consistency Normal for Patient Soft Formed Weight 241 lb General appearance: no acute distress - Head Head exam: Present: atraumatic, normal inspection - Eye Eye exam: Absent: periorbital swelling, periorbital tenderness - ENT ENT exam: Present: mucous membranes moist, normal exam - Neck Neck exam: Present: normal inspection. Absent: lymphadenopathy, meningismus - Respiratory Respiratory exam: Present: accessory muscle use. Absent: chest wall tenderness, respiratory distress - Cardiovascular Cardiovascular exam: Present: normal rate and rhythm. Absent: diastolic murmur, irregular rhythm - GI/Abdominal GI/Abdominal exam: Present: normal bowel sounds, soft, distended. Absent: diminished bowel sounds - Neurological Exam Neurological exam: Present: alert, oriented X3, reflexes normal. Absent: motor sensory deficit Medical - DS: Data Labs on day of discharge: Labs from last 24 hours 03/11/19 03/11/19 03/10/19 04:43 04:43 11:57 WBC 10.4 RBC 4.08 L Hgb 12.6 L Hct 37.8 L MCV 92.7 MCH 30.8 MCHC 33.2 RDW 14.4 Plt Count 220 MPV 7.2 L Total Counted 100 Seg Neutrophils % 88 H Band Neutrophils % 4 Lymphocytes % 5 L Monocytes % (Manual) 3 Platelet Estimate Normal RBC Morphology Normal Sodium 133 Potassium 4.7 Chloride 97 Carbon Dioxide 26 Anion Gap 10.0 BUN 18 Creatinine 1.1 GFR Calculation 67 Glucose 160 H Calcium 9.6 Magnesium 2.0 Total Bilirubin 0.3 AST 19 ALT 37 Alkaline Phosphatase 42 Troponin T < 0.01 Total Protein 5.9 Albumin 3.8 Globulin 2.1 L Albumin/Globulin Ratio 1.8 Preliminary micro results at discharge 03/09/19 15:15 Blood Culture - Preliminary Blood 03/09/19 15:05 Blood Culture - Preliminary Blood Medical - DS: A/P - Patient/Caregiver Discharge Instructions Diet: Low Sodium (2gm) Prescriptions: Cefdinir 300 mg PO BID 5 Days #10 cap Transmission Status: Received by [facility] [address] [place], [place] [address] predniSONE [Deltasone] 40 mg PO DAILY 10 Days #20 tab Transmission Status: Received by [facility] Tiotropium [place] [Spiriva] 18 mcg INH DAILY #1 inhalant Transmission Status: Received by [address] [place] Budesonide/Formoterol Fumarate [Symbicort 160-4.5 Mcg Inhaler] 10.2 gm IH BID #1 hfa.aer.ad Transmission Status: Received by [facility] Lisinopril [Zestril] 40 mg PO DAILY 30 Days #30 tab Transmission Status: [address]ceived [address] - Follow up Plan Follow up with: Krystina Jamison DO [Primary Care Provider] - 03/16/19 10:30 am Disposition: Home, Self-Care Care Plan Goals: This discharge packet is provided to you to help keep you informed about your care. We want to ensure you get everything you need when you go home. You will also be receiving a call from us in a few days to follow up with you and see how you are doing since your discharge. This gives us a chance to listen to any concerns you maybe experiencing since you were discharged or any additional needs you may have, as well as providing us feedback on your care experience. We strive to always provide excellent care and thank you for your feedback and for choosing [facility]. Prognosis: Fair Rehab Potential: Fair Medical - DS: Qual - VTE Deep Vein Thrombosis/Pulmonary Embolism Present on Admission: No
== END 2019-03-11 13:30 | disposition home or self-care (01) | DRG 189 ==
LOC: ED 14:25 → MEDSUR 21:05
PROVIDERS: ADMIT Internal Medicine; ATTEND Internal Medicine